=== PATIENT | female | born 1965 | race Caucasian/White ===

== ENCOUNTER → 2019-09-24 | Outpatient (CLI) | payer MEDICAID ==
[~2019-09-24] VITALS: Ht 160 cm; Wt 61.2 kg
[~2019-09-24] MED LIST: IOHEXOL-350 100 ML VIAL IV ONE; IV NS 0.9% 250 ML IV ONE; IV NS 0.9% 500 ML IV PRN; METOPROLOL TARTRATE INJ 5 MG/5 ML AMPUL ONE; NITROGLYCERIN 0.4 MG/TAB BOTTLE SL PRN
[2019-09-24] MEDS: METOPROLOL TARTRATE INJ 5 MG/5 ML AMPUL IVP PRN ×4 (12:19→12:34)
[2019-09-24 12:34] VITALS: BP 98/56
--- NOTE | 2019-09-24 12:40 | NUR ---
CTA heart completed denies CP or SOB, report given to [facility] [place] [facility] for transport to [facility]
== END | disposition home or self-care (01) ==
LOC: CT 12:35
PROVIDERS: ATTEND Internal Medicine Interventional Cardiology
DX: M77.8 Other enthesopathies, not elsewhere classified (principal); R91.1 Solitary pulmonary nodule; R07.9 Chest pain, unspecified
CPT/HCPCS: 75574; J3490; J7050; Q9967